=== PATIENT | female | born 1985 | race Caucasian/White ===

== ENCOUNTER 2016-12-22 23:38 | Emergency (ER) | payer BC ==
[~2016-12-22] VITALS: Ht 162.6 cm; Wt 75.5 kg
[~2016-12-22 23:38] MED LIST: IRON324 M1 PO; MELATONIN5 M1 PO; NORCO 325 MG-51 TAB PO; PRIL40 PO; PRILOSEC 20MG20 MG PO; PROAIR HFA0.09 MG/AC IH; PROMETHAZINE12.5 M5 PO; TYLENOL/CODEINE1 ML PO; ULTRAM 50MG TAB50 MG PO; WOMEN'S DAILY1 TAB PO; ZITHROMAX Z PA250 MG PO
[2016-12-22 23:44] VITALS: TEMP 98.4
[2016-12-22] MEDS ORDERED: WOMEN'S DAILY F1 TAB PO (23:46)
[2016-12-23 00:26] LABS: BASO # 0.1 (0.0-0.2); BASO % 0.7 % (0.0-2.0); EOS # 0.5 (0.0-0.7); EOS % 3.7 % (0-4.0); GRAN # 6.5 (1.4-6.5); GRAN % 53.9 % (42.2-75.2); HEMATOCRIT 32.8 % (37.0-47.0); HEMOGLOBIN 10.8 g/dl (12.5-16.0); LYMPH # 4.1 (1.2-3.4); LYMPH % 34.1 % (20.0-51.0); MEAN CELL VOLUME 87 fl (80.0-100.0); MEAN CORPUSCULAR HEMOGLOBIN 29 pg (27.0-31.0); MEAN CORPUSCULAR HGB CONC 33 g/dl (33.0-37.0); MEAN PLATELET VOLUME 9.1 fl (7.4-10.4); MONO # 0.9 (0.1-0.6); MONO % 7.3 % (1.7-9.3); PLATELET COUNT 382 K/mm3 (130-400); RED BLOOD COUNT 3.77 M/mm3 (4.10-5.30)
[2016-12-23 00:36] LABS: ADJUSTED CALCIUM 9.2 mg/dL (8.4-10.2); BILIRUBIN,TOTAL 0.6 mg/dL (0.0-1.0); CALCIUM 9.2 mg/dL (8.4-10.2); CREATININE, serum 0.96 mg/dL (0.52-1.25); POTASSIUM 3.9 mmol/L (3.4-5.0); TOTAL PROTEIN 7.5 gm/dL (6.4-8.2)
[2016-12-23 01:05] LABS: PH 7 (5-8); SQUAMOUS EPITHELIAL 0-2 /hpf; URINE APPEARANCE Clear; URINE BACTERIA Rare /hpf; URINE BILIRUBIN Negative (NEGATIVE); URINE BLOOD Negative (NEGATIVE); URINE COLOR Straw; URINE GLUCOSE Negative (NEGATIVE); URINE KETONE Negative (NEGATIVE); URINE RBC None Seen /hpf; URINE UROBILINOGEN Negative (NEGATIVE); URINE WBC 0-2 /hpf
[2016-12-23 02:22] VITALS: BP 102/72; PULSE 72
== END 2016-12-23 02:22 | disposition home or self-care (01) ==
LOC: COL.ER 23:38
PROVIDERS: Emergency Medicine
DX: G89.18 Other acute postprocedural pain (principal); R10.31 Right lower quadrant pain; R10.11 Right upper quadrant pain; M54.89 Other dorsalgia; Z90.710 Acquired absence of both cervix and uterus
CPT/HCPCS: J1170; J2405; J7030; Q9967

== ENCOUNTER 2017-04-09 23:06 | Emergency (ER) | payer BC ==
[~2017-04-09] VITALS: Ht 160 cm; Wt 73.6 kg
[~2017-04-09 23:06] MED LIST changes: +WOMEN'S DAILY F1 TAB PO
[2017-04-09 23:10] VITALS: TEMP 99.3
[2017-04-09] MEDS ORDERED: PROTONIX 40MG T40 MG PO (23:13)
[2017-04-09] MEDS ORDERED: CYMBALTA 20MG20 MG PO (23:14)
[2017-04-09] MEDS ORDERED: MOBIC 7.5MG7.5 MG PO (23:14)
[2017-04-09] MEDS ORDERED: FLEXERIL5 MG PO (23:14)
[2017-04-10 00:06] VITALS: BP 126/91; PULSE 82
== END 2017-04-10 00:08 | disposition home or self-care (01) ==
LOC: COL.ER 23:06
DX: S91.311A Laceration without foreign body, right foot, initial encounter (principal); W22.8XXA Striking against or struck by other objects, initial encounter; Y92.009 Unspecified place in unspecified non-institutional (private) residence as the place of occurrence of the external cause

== ENCOUNTER 2017-05-31 00:45 | Emergency (ER) | payer BC ==
[~2017-05-31] VITALS: Ht 162.6 cm; Wt 72.7 kg
[~2017-05-31 00:45] MED LIST changes: +CYMBALTA 20MG20 MG PO; +FLEXERIL5 MG PO; +MOBIC 7.5MG7.5 MG PO; +PROTONIX 40MG T40 MG PO
[2017-05-31 00:52] VITALS: TEMP 98.9
[2017-05-31] MEDS ORDERED: FLEXERIL5 MG PO (01:08)
[2017-05-31] MEDS ORDERED: ULTRAM 50MG TAB50 MG PO (02:10)
[2017-05-31] MEDS ORDERED: PERCOCET 325 MG1 TA2 PO (02:10)
[2017-05-31 02:33] VITALS: BP 130/80; PULSE 80
== END 2017-05-31 02:34 | disposition home or self-care (01) ==
LOC: COL.ER 00:45
DX: M54.10 Radiculopathy, site unspecified (principal); M54.9 Dorsalgia, unspecified; M25.512 Pain in left shoulder; M54.2 Cervicalgia; F90.9 Attention-deficit hyperactivity disorder, unspecified type; F41.9 Anxiety disorder, unspecified
CPT/HCPCS: J1885

== ENCOUNTER 2017-07-04 23:17 | Emergency (ER) | payer BC ==
[~2017-07-04] VITALS: Ht 162.6 cm; Wt 73.4 kg
[~2017-07-04 23:17] MED LIST changes: +PERCOCET 325 MG1 TA2 PO
[2017-07-04 23:18] VITALS: BP 130/56; TEMP 98.9
[2017-07-04] MEDS ORDERED: VIVLODEX5 MG PO (23:24)
[2017-07-05] MEDS ORDERED: ADIPEX-P37.5 MG PO
[2017-07-05] MEDS ORDERED: PRILOSEC10 MG PO (00:01)
[2017-07-05] MEDS ORDERED: TUSS PO (00:05)
[2017-07-05 00:34] VITALS: PULSE 96
== END 2017-07-05 00:34 | disposition home or self-care (01) ==
LOC: COL.ER 23:17
DX: J04.0 Acute laryngitis (principal); F39 Unspecified mood [affective] disorder; K21.9 Gastro-esophageal reflux disease without esophagitis; Z90.710 Acquired absence of both cervix and uterus; Z98.51 Tubal ligation status; Z98.890 Other specified postprocedural states
CPT/HCPCS: J1100

== ENCOUNTER 2017-07-12 22:18 | Emergency (ER) | payer BC ==
[~2017-07-12] VITALS: Ht 162.6 cm; Wt 70.9 kg
[~2017-07-12 22:18] MED LIST changes: +ADIPEX-P37.5 MG PO; +PRILOSEC10 MG PO; +TUSS PO; +VIVLODEX5 MG PO
[2017-07-12 22:21] VITALS: BP 121/88; TEMP 98.2
[2017-07-12] MEDS ORDERED: ZITHROMAX 250M250 MG PO (23:31)
[2017-07-13 00:32] VITALS: PULSE 92
== END 2017-07-13 00:32 | disposition home or self-care (01) ==
LOC: COL.ER 22:18
DX: J40 Bronchitis, not specified as acute or chronic (principal); G43.909 Migraine, unspecified, not intractable, without status migrainosus; K21.9 Gastro-esophageal reflux disease without esophagitis; F31.9 Bipolar disorder, unspecified; Z87.891 Personal history of nicotine dependence
CPT/HCPCS: J0595

== ENCOUNTER 2018-01-16 23:23 | Emergency (ER) | payer BC ==
[~2018-01-16] VITALS: Ht 162.6 cm; Wt 75.0 kg
[~2018-01-16 23:23] MED LIST changes: +ZITHROMAX 250M250 MG PO
[2018-01-16 23:31] VITALS: BP 129/62; TEMP 98.2
[2018-01-16] MEDS ORDERED: PHENERGAN 25 TA25 MG PO (23:35)
[2018-01-16] MEDS ORDERED: PROTONIX 40MG T40 MG PO (23:35)
[2018-01-16] MEDS ORDERED: DESYREL 50MG50 MG PO (23:36)
[2018-01-16] MEDS ORDERED: TOPAMAX50 MG PO (23:36)
[2018-01-17 00:55] LABS: BASO # 0.1 (0.0-0.2); BASO % 0.5 % (0.0-2.0); EOS # 0.3 (0.0-0.7); EOS % 2.5 % (0-4.0); GRAN # 6.5 (1.4-6.5); GRAN % 54.4 % (42.2-75.2); HEMATOCRIT 43.8 % (37.0-47.0); HEMOGLOBIN 14.8 g/dl (12.5-16.0); LYMPH # 4.1 (1.2-3.4); LYMPH % 34.4 % (20.0-51.0); MEAN CELL VOLUME 91 fl (80.0-100.0); MEAN CORPUSCULAR HEMOGLOBIN 31 pg (27.0-31.0); MEAN CORPUSCULAR HGB CONC 34 g/dl (33.0-37.0); MONO # 0.9 (0.1-0.6); MONO % 7.4 % (1.7-9.3); PLATELET COUNT 341 K/mm3 (130-400); RED BLOOD COUNT 4.81 M/mm3 (4.10-5.30); REDCELL DISTRIBUTION WIDTH-CV 12.5 % (11.5-14.5)
[2018-01-17 01:04] LABS: ALBUMIN 4.1 gm/dL (3.5-5.0); BILIRUBIN,TOTAL 0.3 mg/dL (0.0-1.0); CALCIUM 9.4 mg/dL (8.4-10.2); CREATININE, serum 0.8 mg/dL (0.52-1.25); MAGNESIUM 2.1 mg/dL (1.6-2.3); PHOSPHOROUS 3.5 mg/dL (2.5-4.5); TOTAL PROTEIN 7.6 gm/dL (6.4-8.2)
[2018-01-17 01:20] LABS: PROLACTIN 19.3 ng/mL (3.0-18.6)
[2018-01-17] MEDS ORDERED: ANTIVERT 25MG25 MG PO (02:10)
[2018-01-17 02:39] LABS: COLLECTION METHOD CLEAN CATCH
[2018-01-17 02:46] LABS: MUCOUS Present /lpf; PH 5 (5-8); URINE APPEARANCE Clear; URINE BACTERIA None Seen /hpf; URINE BILIRUBIN Negative (NEGATIVE); URINE BLOOD Negative (NEGATIVE); URINE COLOR Yellow; URINE GLUCOSE Negative (NEGATIVE); URINE KETONE Negative (NEGATIVE); URINE LEUKOCYTE ESTERASE Negative (NEGATIVE); URINE NITRATE Negative (NEGATIVE); URINE PROTEIN(semi-quant) Negative (NEGATIVE); URINE RBC 0-2 /hpf; URINE UROBILINOGEN Negative (NEGATIVE)
[2018-01-17 03:07] VITALS: PULSE 76
== END 2018-01-17 03:05 | disposition home or self-care (01) ==
LOC: COL.ER 23:23
PROVIDERS: Emergency Medicine
DX: G43.909 Migraine, unspecified, not intractable, without status migrainosus (principal); D32.9 Benign neoplasm of meninges, unspecified; F41.9 Anxiety disorder, unspecified; Z90.710 Acquired absence of both cervix and uterus
CPT/HCPCS: J1200; J1885; J2550; J7030

== ENCOUNTER 2019-03-12 12:41 | Emergency (ER) | payer BC ==
[~2019-03-12] VITALS: Ht 162.6 cm; Wt 69.5 kg
[~2019-03-12 12:41] MED LIST changes: +ANTIVERT 25MG25 MG PO; +DESYREL 50MG50 MG PO; +PHENERGAN 25 TA25 MG PO; +TOPAMAX50 MG PO
[2019-03-12 12:45] VITALS: BP 141/85; PULSE 82; TEMP 97.8
[2019-03-12] MEDS ORDERED: CEPHALEXIN500 M1 PO (13:34)
== END 2019-03-12 14:07 | disposition home or self-care (01) ==
LOC: COL.ER 12:41
DX: S91.012A Laceration without foreign body, left ankle, initial encounter (principal); M79.7 Fibromyalgia; F32.9 Major depressive disorder, single episode, unspecified; F41.9 Anxiety disorder, unspecified; G43.909 Migraine, unspecified, not intractable, without status migrainosus; W25.XXXA Contact with sharp glass, initial encounter; Y92.009 Unspecified place in unspecified non-institutional (private) residence as the place of occurrence of the external cause

== ENCOUNTER 2019-09-15 18:44 | Emergency (ER) | payer BC ==
[~2019-09-15] VITALS: Ht 162.6 cm; Wt 75.0 kg
[~2019-09-15 18:44] MED LIST changes: +CEPHALEXIN500 M1 PO
[2019-09-15 18:49] VITALS: TEMP 98
[2019-09-15 19:31] LABS: COLLECTION METHOD CLEAN CATCH
[2019-09-15 19:47] LABS: MUCOUS Present /lpf; PH 6 (5-8); URINE APPEARANCE Hazy; URINE BACTERIA Rare /hpf; URINE BILIRUBIN Negative (NEGATIVE); URINE BLOOD Negative (NEGATIVE); URINE COLOR Yellow; URINE GLUCOSE Negative (NEGATIVE); URINE KETONE Negative (NEGATIVE); URINE LEUKOCYTE ESTERASE 1+ (NEGATIVE); URINE NITRATE Positive (NEGATIVE); URINE PROTEIN(semi-quant) Negative (NEGATIVE); URINE RBC 0-2 /hpf; URINE UROBILINOGEN Negative (NEGATIVE)
[2019-09-15] MEDS ORDERED: MIRAPEX 0.0.125 MG/T PO (20:34)
[2019-09-15] MEDS ORDERED: AJOVY225 MG/1.5 SQ (20:35)
[2019-09-15] MEDS ORDERED: ZANAFLEX 4MG TAB4 MG PO (20:35)
[2019-09-15] MEDS ORDERED: MOBIC 7.5MG7.5 MG PO ×2 (20:36→20:58)
[2019-09-15] MEDS ORDERED: MEDROL 4MG DOSPA4 MG PO (20:58)
[2019-09-15] MEDS ORDERED: CEFTIN 250250 MG/TAB PO (20:58)
[2019-09-15] MEDS ORDERED: ZESTRIL 10MG10 MG PO (20:58)
[2019-09-15 21:00] VITALS: BP 154/116; PULSE 83
== END 2019-09-15 21:07 | disposition home or self-care (01) ==
LOC: COL.ER 18:44
PROVIDERS: Nurse Practitioner
DX: N39.0 Urinary tract infection, site not specified (principal); M54.42 Lumbago with sciatica, left side; R03.0 Elevated blood-pressure reading, without diagnosis of hypertension; G43.909 Migraine, unspecified, not intractable, without status migrainosus; F90.9 Attention-deficit hyperactivity disorder, unspecified type; F41.9 Anxiety disorder, unspecified; Z90.710 Acquired absence of both cervix and uterus; Z87.891 Personal history of nicotine dependence; Z98.890 Other specified postprocedural states
CPT/HCPCS: J1885; J2360

== ENCOUNTER 2019-09-26 16:32 | Emergency (ER) | payer BC ==
[~2019-09-26] VITALS: Ht 162.6 cm; Wt 75.6 kg
[~2019-09-26 16:32] MED LIST changes: +AJOVY225 MG/1.5 SQ; +CEFTIN 250250 MG/TAB PO; +MEDROL 4MG DOSPA4 MG PO; +MIRAPEX 0.0.125 MG/T PO; +ZANAFLEX 4MG TAB4 MG PO; +ZESTRIL 10MG10 MG PO
[2019-09-26 16:45] VITALS: TEMP 98.6
[2019-09-26 17:48] LABS: BASO # 0.1 (0.0-0.2); BASO % 0.4 % (0.0-2.0); EOS # 0.3 (0.0-0.7); EOS % 2.4 % (0-4.0); GRAN # 7.7 (1.4-6.5); GRAN % 67.7 % (42.2-75.2); HEMATOCRIT 44.9 % (37.0-47.0); HEMOGLOBIN 14.8 g/dl (12.5-16.0); LYMPH # 2.5 (1.2-3.4); LYMPH % 21.4 % (20.0-51.0); MEAN CELL VOLUME 95 fl (80.0-100.0); MEAN CORPUSCULAR HEMOGLOBIN 31 pg (27.0-31.0); MEAN CORPUSCULAR HGB CONC 33 g/dl (33.0-37.0); MEAN PLATELET VOLUME 9.1 fl (7.4-10.4); MONO # 0.9 (0.1-0.6); MONO % 7.8 % (1.7-9.3); PLATELET COUNT 272 K/mm3 (130-400); RED BLOOD COUNT 4.75 M/mm3 (4.10-5.30); REDCELL DISTRIBUTION WIDTH-CV 12.3 % (11.5-14.5)
[2019-09-26 18:13] LABS: ALBUMIN 4.2 gm/dL (3.5-5.0); BILIRUBIN,TOTAL 0.5 mg/dL (0.0-1.0); CALCIUM 9.4 mg/dL (8.4-10.2); CREATININE, serum 0.75 (0.52-1.25); POTASSIUM 4.4 mmol/L (3.4-5.0); TOTAL PROTEIN 7.6 gm/dL (6.4-8.2)
[2019-09-26 18:38] LABS: COLLECTION METHOD CLEAN CATCH
[2019-09-26] MEDS ORDERED: NORGESTIMATE AN1 TAB (18:46)
[2019-09-26 18:53] LABS: PH 6 (5-8); SQUAMOUS EPITHELIAL 0-2 /hpf; URINE APPEARANCE Clear; URINE BACTERIA None Seen /hpf; URINE BILIRUBIN Negative (NEGATIVE); URINE BLOOD Negative (NEGATIVE); URINE COLOR Yellow; URINE GLUCOSE Negative (NEGATIVE); URINE KETONE Negative (NEGATIVE); URINE LEUKOCYTE ESTERASE Negative (NEGATIVE); URINE NITRATE Negative (NEGATIVE); URINE PROTEIN(semi-quant) Negative (NEGATIVE); URINE RBC 0-2 /hpf; URINE UROBILINOGEN Negative (NEGATIVE)
[2019-09-26] MEDS ORDERED: NORCO 325 MG-51 TAB PO (19:17)
[2019-09-26 19:28] VITALS: BP 108/76; PULSE 66
== END 2019-09-26 19:33 | disposition home or self-care (01) ==
LOC: COL.ER 16:32
PROVIDERS: Emergency Medicine
DX: R10.31 Right lower quadrant pain (principal); Z90.710 Acquired absence of both cervix and uterus; Z98.51 Tubal ligation status
CPT/HCPCS: J0780; J1170; J1885; J7030; Q9967

== ENCOUNTER 2019-10-21 21:27 | Emergency (ER) | payer BC ==
[~2019-10-21] VITALS: Ht 162.6 cm; Wt 72.7 kg
[~2019-10-21 21:27] MED LIST changes: +NORGESTIMATE AN1 TAB
[2019-10-21 21:30] VITALS: TEMP 98.7
[2019-10-21 22:17] LABS: BASO % 0.3 % (0.0-2.0); EOS # 0.2 (0.0-0.7); EOS % 1.6 % (0-4.0); GRAN # 7.2 (1.4-6.5); GRAN % 61.8 % (42.2-75.2); HEMATOCRIT 41.4 % (37.0-47.0); HEMOGLOBIN 13.9 g/dl (12.5-16.0); LYMPH # 3.5 (1.2-3.4); LYMPH % 29.9 % (20.0-51.0); MEAN CELL VOLUME 92 fl (80.0-100.0); MEAN CORPUSCULAR HEMOGLOBIN 31 pg (27.0-31.0); MEAN CORPUSCULAR HGB CONC 34 g/dl (33.0-37.0); MEAN PLATELET VOLUME 9.1 fl (7.4-10.4); MONO # 0.7 (0.1-0.6); MONO % 6.1 % (1.7-9.3); PLATELET COUNT 367 K/mm3 (130-400); REDCELL DISTRIBUTION WIDTH-CV 12.1 % (11.5-14.5)
[2019-10-21 22:38] LABS: ALBUMIN 4.2 gm/dL (3.5-5.0); BILIRUBIN,TOTAL 0.7 mg/dL (0.0-1.0); C-REACTIVE PROTEIN 1.2 mg/dL (0.0-0.9); CALCIUM 9.4 mg/dL (8.4-10.2); CREATININE, serum 0.7 (0.52-1.25); POTASSIUM 4.2 mmol/L (3.4-5.0); TOTAL PROTEIN 7.6 gm/dL (6.4-8.2)
[2019-10-21 22:55] LABS: COLLECTION METHOD CLEAN CATCH
[2019-10-21 23:03] LABS: MUCOUS Present /lpf; PH 6 (5-8); SQUAMOUS EPITHELIAL 0-2 /hpf; URINE APPEARANCE Clear; URINE BACTERIA None Seen /hpf; URINE BILIRUBIN Negative (NEGATIVE); URINE BLOOD Negative (NEGATIVE); URINE COLOR Yellow; URINE GLUCOSE Negative (NEGATIVE); URINE KETONE 1+ (NEGATIVE); URINE LEUKOCYTE ESTERASE Negative (NEGATIVE); URINE NITRATE Negative (NEGATIVE); URINE PROTEIN(semi-quant) Negative (NEGATIVE); URINE RBC 0-2 /hpf
[2019-10-21] MEDS ORDERED: NORVASC 5MG5 MG/TAB PO (23:22)
[2019-10-21 23:43] VITALS: BP 167/113; PULSE 80
== END 2019-10-21 23:43 | disposition home or self-care (01) ==
LOC: COL.ER 21:27
PROVIDERS: Emergency Medicine
DX: I10 Essential (primary) hypertension (principal); R10.31 Right lower quadrant pain; R10.32 Left lower quadrant pain; Z90.710 Acquired absence of both cervix and uterus
CPT/HCPCS: J1170; J2405; J3010; J7030; Q9967

== ENCOUNTER 2019-11-05 02:39 | Emergency (ER) | payer BC ==
[~2019-11-05] VITALS: Ht 162.6 cm; Wt 73.6 kg
[~2019-11-05 02:39] MED LIST changes: +NORVASC 5MG5 MG/TAB PO
[2019-11-05 02:42] VITALS: BP 133/92; TEMP 98.7
[2019-11-05 03:19] VITALS: PULSE 96
== END 2019-11-05 03:15 | disposition home or self-care (01) ==
LOC: COL.ER 02:39
DX: S82.832A Other fracture of upper and lower end of left fibula, initial encounter for closed fracture (principal); F90.9 Attention-deficit hyperactivity disorder, unspecified type; G43.909 Migraine, unspecified, not intractable, without status migrainosus; F41.9 Anxiety disorder, unspecified; Z87.891 Personal history of nicotine dependence; X50.1XXA Overexertion from prolonged static or awkward postures, initial encounter; Y92.009 Unspecified place in unspecified non-institutional (private) residence as the place of occurrence of the external cause

== ENCOUNTER 2020-04-19 17:55 | Emergency (ER) | payer BC ==
[~2020-04-19] VITALS: Ht 162.6 cm; Wt 80.0 kg
[2020-04-19 18:04] VITALS: BP 124/89; TEMP 98.8
[2020-04-19] MEDS ORDERED: NITRO-BID22 (18:22)
[2020-04-19 19:15] VITALS: PULSE 78
== END 2020-04-19 19:17 | disposition home or self-care (01) ==
LOC: COL.ER 17:55
DX: S61.211A Laceration without foreign body of left index finger without damage to nail, initial encounter (principal); I10 Essential (primary) hypertension; F41.9 Anxiety disorder, unspecified; G43.909 Migraine, unspecified, not intractable, without status migrainosus; W26.0XXA Contact with knife, initial encounter; Y92.009 Unspecified place in unspecified non-institutional (private) residence as the place of occurrence of the external cause

== ENCOUNTER 2020-04-25 11:17 | Emergency (ER) | payer SELFPAY ==
[~2020-04-25] VITALS: Ht 162.6 cm; Wt 80.0 kg
[~2020-04-25 11:17] MED LIST changes: +NITRO-BID22
[2020-04-25 11:26] VITALS: TEMP 98.4
[2020-04-25] MEDS ORDERED: FLONASEALLERGY NS (12:14)
[2020-04-25] MEDS ORDERED: ULTRAM 50MG TAB50 MG PO (12:16)
[2020-04-25 13:15] VITALS: BP 122/84; PULSE 86
== END 2020-04-25 13:13 | disposition home or self-care (01) ==
LOC: COL.ER 11:17
DX: S93.402A Sprain of unspecified ligament of left ankle, initial encounter (principal); X50.1XXA Overexertion from prolonged static or awkward postures, initial encounter; Y93.01 Activity, walking, marching and hiking; Y92.828 Other wilderness area as the place of occurrence of the external cause

== ENCOUNTER 2020-07-06 17:18 | Emergency (ER) | payer SELFPAY ==
[~2020-07-06] VITALS: Ht 162.6 cm; Wt 79.5 kg
[~2020-07-06 17:18] MED LIST changes: +FLONASEALLERGY NS
[2020-07-06 17:24] VITALS: TEMP 97.9
[2020-07-06 18:22] VITALS: BP 128/86; PULSE 93
== END 2020-07-06 18:21 | disposition home or self-care (01) ==
LOC: COL.ER 17:18
DX: S93.402A Sprain of unspecified ligament of left ankle, initial encounter (principal); Z88.8 Allergy status to other drugs, medicaments and biological substances; X50.0XXA Overexertion from strenuous movement or load, initial encounter; Y92.009 Unspecified place in unspecified non-institutional (private) residence as the place of occurrence of the external cause

== ENCOUNTER 2021-05-18 15:15 | Emergency (ER) | payer BC ==
[~2021-05-18] VITALS: Ht 162.6 cm; Wt 82.7 kg
[2021-05-18 15:23] VITALS: BP 129/87; TEMP 98.8
[2021-05-18] MEDS ORDERED: DOXYCYCLINE HY100 MG PO (15:39)
[2021-05-18 15:53] VITALS: PULSE 80
== END 2021-05-18 15:50 | disposition home or self-care (01) ==
LOC: COL.ER 15:15
DX: L60.0 Ingrowing nail (principal); I10 Essential (primary) hypertension; G43.909 Migraine, unspecified, not intractable, without status migrainosus; Z79.899 Other long term (current) drug therapy

== ENCOUNTER 2022-03-27 18:48 | Emergency (ER) | payer BC ==
[~2022-03-27] VITALS: Ht 160 cm; Wt 83.2 kg
[~2022-03-27 18:48] MED LIST changes: +DOXYCYCLINE HY100 MG PO
[2022-03-27 18:52] VITALS: TEMP 97.8
[2022-03-27] MEDS ORDERED: PERCOCET 325 MG1 TA2 PO (21:54)
[2022-03-27 22:14] VITALS: BP 125/88; PULSE 76
== END 2022-03-27 22:14 | disposition home or self-care (01) ==
LOC: COL.ER 18:48
DX: S22.20XA Unspecified fracture of sternum, initial encounter for closed fracture (principal); S40.022A Contusion of left upper arm, initial encounter; M54.2 Cervicalgia; M54.50 Low back pain, unspecified; Z87.891 Personal history of nicotine dependence; V49.50XA Passenger injured in collision with unspecified motor vehicles in traffic accident, initial encounter; Y92.410 Unspecified street and highway as the place of occurrence of the external cause
CPT/HCPCS: J2270

== ENCOUNTER 2022-06-15 14:35 | Emergency (ER) | payer BC ==
[~2022-06-15] VITALS: Ht 157.5 cm; Wt 81.8 kg
[2022-06-15 14:59] VITALS: BP 111/85; PULSE 89; TEMP 98.6
[2022-06-15] MEDS ORDERED: BACTRIM DS 8001 TAB PO (16:30)
[2022-06-15] MEDS ORDERED: TRIAM OI 0.1 80 TOP (16:30)
== END 2022-06-15 17:04 | disposition home or self-care (01) ==
LOC: COL.ER 14:35
DX: L60.0 Ingrowing nail (principal); Z28.311 Partially vaccinated for COVID-19

== ENCOUNTER 2023-07-05 12:27 | Emergency (ER) | payer BC ==
[~2023-07-05] VITALS: Ht 157.5 cm; Wt 83.6 kg
[~2023-07-05 12:27] MED LIST changes: +BACTRIM DS 8001 TAB PO; +MACROBID 1100 MG/CAP PO; +TRIAM OI 0.1 80 TOP
[2023-07-05 12:33] VITALS: BP 135/85; TEMP 98
[2023-07-05 14:11] VITALS: PULSE 73
== END 2023-07-05 14:11 | disposition home or self-care (01) ==
LOC: COL.ER 12:27
DX: M71.322 Other bursal cyst, left elbow (principal); G89.29 Other chronic pain; Z79.1 Long term (current) use of non-steroidal anti-inflammatories (NSAID); Z87.891 Personal history of nicotine dependence; Z28.311 Partially vaccinated for COVID-19